=== PATIENT | female | born 1985 | race Caucasian/White ===

== ENCOUNTER 2019-10-07 13:19 | Emergency (ER) | payer OTHER ==
[~2019-10-07] VITALS: Ht 162.6 cm; Wt 63.5 kg
[2019-10-07 13:29] VITALS: BP 120/75
[2019-10-07] MEDS ORDERED: IBUPROFEN 800 MG TAB PO ONE (16:00)
== END 2019-10-07 16:08 | disposition home or self-care (01) ==
LOC: ER 13:25
DX: S93.402A Sprain of unspecified ligament of left ankle, initial encounter (principal); X50.1XXA Overexertion from prolonged static or awkward postures, initial encounter; Y93.01 Activity, walking, marching and hiking; Y92.89 Other specified places as the place of occurrence of the external cause; Y99.8 Other external cause status
CPT/HCPCS: 73610